=== PATIENT | male | born 1975 | race Two or more races ===

== ENCOUNTER 2018-01-23 20:53 | Emergency (ER) | payer SELFPAY ==
[~2018-01-23] VITALS: Ht 165.1 cm; Wt 114.3 kg
[2018-01-23 21:17] VITALS: BP 131/97
== END 2018-01-24 04:21 | disposition left against medical advice (07) ==
LOC: ER 20:53
DX: R19.7 Diarrhea, unspecified (principal); Z53.21 Procedure and treatment not carried out due to patient leaving prior to being seen by health care provider
CPT/HCPCS: 74176